=== PATIENT | male | born 1980 | race African-American/Black ===

== ENCOUNTER 2018-08-16 20:25 | Emergency (ER) | payer SELFPAY ==
[~2018-08-16] VITALS: Ht 180.3 cm; Wt 94.7 kg
[2018-08-16 20:30] VITALS: BP 147/98
== END 2018-08-16 21:56 | disposition home or self-care (01) ==
LOC: ED 21:50
DX: K52.9 Noninfective gastroenteritis and colitis, unspecified (principal); R53.1 Weakness; Z00.00 Encounter for general adult medical examination without abnormal findings; Z76.5 Malingerer [conscious simulation]
CPT/HCPCS: 99281